=== PATIENT | female | born 1995 ===

== ENCOUNTER 2018-08-10 16:26 | Emergency (ER) | payer BC, OTHER ==
[2018-08-10 17:16] LABS: BASO % 0.6 % (0.0-2.0); EOS # 0.1 K/uL (0.0-0.7); EOS % 1.6 % (0.0-4.0); HEMOGLOBIN 12.9 g/dL (11.0-16.0); LYMPH # 2.9 K/uL (1.0-4.3); LYMPH % 36.4 % (20.0-40.0); MEAN CORPUSCULAR HEMOGLOBIN 28.4 pg (27.0-31.0); MEAN CORPUSCULAR HGB CONC 32.8 g/dL (33.0-37.0); MEAN PLATELET VOLUME 8.9 fL (7.2-11.7); MONO # 0.7 K/uL (0.0-0.8); MONO % 8.4 % (0.0-10.0); NEUT # 4.2 K/uL (1.8-7.0); NRBC % 0.1 % (0.0-2.0); RBC 4.54 Mil/uL (3.80-5.20); RED CELL DISTRIBUTION WIDTH 13.8 % (11.5-14.5); WHITE BLOOD COUNT 7.9 K/uL (4.8-10.8)
[2018-08-10 17:22] LABS: MEAN CELL VOLUME 86.6 fL (81.0-99.0)
[2018-08-10 17:23] LABS: ALB/GLOB RATIO 1.2 (1.0-2.1); ALBUMIN 5.4 g/dL (3.5-5.0); ALT/SGPT 14 U/L (9-52); AST/SGOT 22 U/L (14-36); BLOOD UREA NITROGEN 9 mg/dL (7-17); CALCIUM 10.7 mg/dl (8.6-10.4); GFR NON-AFRICAN AMERICAN > 60; LIPASE 89 U/L (23-300)
--- NOTE | 2018-08-10 17:25 | C.PDOC ---
History Of Present Illness 23 year old female patient with PSHx appendectomy and hx of migraine and presents to the ER c/o watery diarrhea. Patient reports it started last night at 9 PM. Patient reports she had vomiting , fever and headache for x4 days but was relieved yesterday. Patient's PMD Dr. He suggests to visit ER if conditions remain. Patient was given Zithromax x3 days ago. Patient denies recent travels and no new foods. Patient notes she is allergic to Zofran. Patient also notes that the last time she had watery diarrhea, she had a colonoscopy but results show no abnormalities. <Anujm Trevino - Last Filed: 08/10/18 18:54> History Per: Patient History/Exam Limitations: no limitations Onset/Duration Of Symptoms: Days (x1) Current Symptoms Are (Timing): Still Present <Anjum Trevino - Last Filed: 08/10/18 18:54> <Dani Egan - Last Filed: 08/10/18 20:19> Time Seen by Provider: 08/10/18 16:42 Chief Complaint (Nursing): GI Problem Past Medical History Reviewed: Historical Data, Nursing Documentation, Vital Signs Vital Signs: Last Vital Signs Temp 98.2 F 08/10/18 16:33 Pulse 100 H 08/10/18 16:33 Resp 18 08/10/18 16:33 BP 131/82 08/10/18 16:33 Pulse Ox 100 08/10/18 16:33 - Medical History PMH: Migraine Surgical History: Appendectomy Family History: States: Unknown Family Hx - Social History Hx Alcohol Use: No Hx Substance Use: No - Immunization History Hx Tetanus Toxoid Vaccination: No Hx Influenza Vaccination: No <Anjum Trevino - Last Filed: 08/10/18 18:54> Vital Signs: Last Vital Signs Temp 98.2 F 08/10/18 16:33 Pulse 100 H 08/10/18 16:33 Resp 18 08/10/18 16:33 BP 131/82 08/10/18 16:33 Pulse Ox 100 08/10/18 18:55 <Dani Egan - Last Filed: 08/10/18 20:19> Review Of Systems Constitutional: Positive for: Other (allergy to Zofran) Gastrointestinal: Positive for: Diarrhea (watery) <Anjum Trevino - Last Filed: 08/10/18 18:54> Physical Exam - Physical Exam Appears: Non-toxic, No Acute Distress Skin: Warm, Dry Head: Normacephalic Eye(s): bilateral: Normal Inspection, PERRL, EOMI Oral Mucosa: Moist Neck: Trachea Midline, Supple Chest: Symmetrical, No Deformity Cardiovascular: Rhythm Regular, No Friction Rub Respiratory: No Rales, No Rhonchi, No Wheezing Gastrointestinal/Abdominal: Bowel Sounds (normal), Soft, Tenderness (periumbilical), No Distention Back: No CVA Tenderness Extremity: Bilateral: Normal Color And Temperature Pulses: Left Dorsalis Pedis: Normal (2+), Right Dorsalis Pedis: Normal (2+) Neurological/Psych: Oriented x3 Gait: Steady <Anjum Trevino - Last Filed: 08/10/18 18:54> ED Course And Treatment - Laboratory Results Result Diagrams: 08/10/18 17:08 08/10/18 17:08 O2 Sat by Pulse Oximetry: 100 (RA) Pulse Ox Interpretation: Normal <Anjum Trevino - Last Filed: 08/10/18 18:54> - Laboratory Results Result Diagrams: 08/10/18 17:08 08/10/18 17:08 Pulse Ox Interpretation: Normal Reevaluation Time: 20:17 Reassessment Condition: Improved <Dani Egan - Last Filed: 08/10/18 20:19> Medical Decision Making Medical Decision Makin yr old female w/ hx of appendectomy, recent nausea, vomiting which has since resolved p/w diarrhea. Multiple episodes for which she has seen her PMD and her GI doctor. She was told to come in today by PMD: Dr. Gibbs given worsening diarrhea, 25x a day. No dark or bloody stool. No recent travel. PT notes that she was started on a zpack 2 days prior. [place]-umbilical pain on my exam, without gaurding or rebound. Likely C-diff, will scan however given periumbilical pain- colitis vs stump appendicits vs c diff. Impression: watery diarrhea plans: -- blood work -- serology -- UA 1900 labs unremarkable pt in NAD, resting comfortably pending CT Read + re-eval; Signed out to oncoming physician <Anjum Trevino - Last Filed: 08/10/18 18:54> Medical Decision Making: Upon provider reevaluation patient is feeling better, is medically stable, and requires no further treatment in the ED at this time. Patient will be discharged home . Counseling was provided and all questions were answered regarding diagnosis and need for follow up with dr angeles. There is agreement to discharge plan. Return if symptoms persist or worsen. <Dani Egan - Last Filed: 08/10/18 20:19> Disposition - Disposition Disposition Time: 19:00 <Anjum Trevino - Last Filed: 08/10/18 18:54> Counseled Patient/Family Regarding: Studies Performed, Diagnosis, Need For Followup <Dani Egan - Last Filed: 08/10/18 20:19> - Disposition Referrals: Francisco J Angeles MD [Staff Provider] - Condition: FAIR Additional Instructions: Please return if symptoms recur. Please use [facility] for the diarrhea Instructions: Diarrhea in Adolescents and Adults Forms: [facility] ([place]i) - Clinical Impression Clinical Impression: Diarrhea - Scribe Statement The provider has reviewed the documentation as recorded by the Scribe Last Do Provider Attestation: All medical record entries made by the Scribe were at my direction and personally dictated by me. I have reviewed the chart and agree that the record accurately reflects my personal performance of the history, physical exam, medical decision making, and the department course for this patient. I have also personally directed, reviewed, and agree with the discharge instructions and disposition. <Anjum Trevino - Last Filed: 08/10/18 18:54>
[2018-08-10] MEDS ORDERED: Sodium Chloride 0.9% 1,000 ML IV ONE (17:27)
[2018-08-10] MEDS ORDERED: Iodixanol 320 MG/ML 100 ML BOTTLE IV ONE (18:30)
[2018-08-10 18:54] LABS: SQUAMOUS EPITHIAL 5 /hpf (0-5); URINE BACTERIA RARE (<OCC); URINE BILIRUBIN NEGATIVE (NEGATIVE); URINE BLOOD NEGATIVE (NEGATIVE); URINE CLARITY Clear (Clear); URINE COLOR Amber (YELLOW); URINE GLUCOSE (UA) NORMAL (Normal); URINE LEUKOCYTE ESTERASE TRACE Leu/uL (Negative); URINE PROTEIN NEGATIVE (NEGATIVE); URINE UROBILINOGEN NORMAL mg/dL (0.2-1.0)
[2018-08-10 20:36] VITALS: BP 107/77; PULSE 82; RESP 20; TEMP 98; O2SAT 98
--- NOTE | 2018-08-11 09:50 | CT ---
Date of service: 2018-08-10 18:41:10 PROCEDURE: CT abdomen pelvis HISTORY: Abdominal pain COMPARISON: None. TECHNIQUE: Contiguous axial images of the abdomen and pelvis following intravenous injection of approximately 100 cc Visipaque 320 contrast material.... Coronal and Sagittal reformats generated. Radiation dose: Total exam DLP = 231.51 mGy-cm. This CT exam was performed using one or more of the following dose reduction techniques: Automated exposure control, adjustment of the mA and/or kV according to patient size, and/or use of iterative reconstruction technique. FINDINGS: LOWER THORAX: Unremarkable. LIVER: Liver exhibits normal size.. Mild fatty hepatic infiltration felt be present. No gross lesion or ductal dilatation. GALLBLADDER AND BILE DUCTS: Gallbladder incompletely distended. No definitive evidence of intraluminal gallbladder calculi. PANCREAS: Unremarkable. No mass. No ductal dilatation. SPLEEN: Unremarkable. No splenomegaly. ADRENALS: No adrenal lesions. KIDNEYS AND URETERS: Kidneys demonstrate symmetric nephrograms. No stone or hydronephrosis. Small approximately 4 mm low-attenuation focus seen in the anterior cortex upper/midpole left kidney that exhibits Hounsfield units in the upper 90s. While this could represent a small hyperdense cyst with volume averaging of a enhanced the surrounding renal parenchyma the possibility of a solid lesion not excluded. Recommend followup renal ultrasound for further evaluation. BLADDER: Urinary bladder is incompletely distended. REPRODUCTIVE: Questionable small right adnexal cyst. APPENDIX: Appendix is not seen consistent with this patient's history of prior appendectomy. BOWEL: Evaluation of the bowel slightly limited due to the lack of oral contrast material. Stomach is distended with food debris liquid and air. Multiple of minimally distended fluid-filled loops of small bowel present. There is also fluid seen throughout the entire colon. Findings are consistent with a diarrheal illness however clinical correlation recommended. PERITONEUM: . Questionable small amount of free fluid within the pelvis. No free air. Small fat containing umbilical hernia LYMPH NODES: Unremarkable. No enlarged lymph nodes. VASCULATURE: Unremarkable. No aortic aneurysm. BONES: No fracture or destructive lesion. OTHER FINDINGS: None. IMPRESSION: Findings consistent with a diarrheal illness as detailed above. Questionable right adnexal cyst. Questionable small amount of free fluid in the pelvis. Small low-attenuation lesion left kidney which exhibits Hounsfield units in the upper 90s. While this could represent a hyperdense cyst of with volume averaging of enhanced surrounding renal parenchyma, solid lesion not excluded. Recommend followup renal ultrasound for further evaluation. Note this report was placed in [place] review folder for followup.
== END 2018-08-10 20:34 | disposition home or self-care (01) ==
LOC: C.ER 16:26
DX: R19.7 Diarrhea, unspecified (principal)
CPT/HCPCS: 74177; 80053; 81001; 83690; 85025; 87230; 96360; 99285; J7030; Q9967